=== PATIENT | male | born 1955 | race Caucasian/White ===

== ENCOUNTER 2018-11-24 10:00 | Day surgery (SDC) | payer BC, SELFPAY ==
--- NOTE | 2018-11-23 18:19 | PM.PREOP ---
Pre-operative Note Interval Note History & Physical reviewed/Exam performed by Physician: Yes Changes to H&P: No
--- NOTE | 2018-11-23 18:22 | P.OP_ITS ---
Operative Date/Time/Diagnoses Date of procedure: 11/24/18 Time of procedure: 11:45 Procedure & Clinicians Procedure: Preoperative diagnoses: 1. Left nuclear sclerotic and cortical cataract. 2. Epiretinal membrane. Postoperative diagnoses: 1. Cataract removed by phacoemulsification with placement of posterior chamber intraocular lens. Procedure: Phacoemulsification with posterior chamber intraocular lens implant Surgeon: Stacey Rendon MD Complications: None Specimen: None Implant: [id number] Blood loss: None Anesthesia: Retrobulbar with monitored standby Description of procedure: Patient presents with a complaint of decreased vision due to cataract which is affecting activities of daily living. The patient wants surgery to improve vision. he understands he has an epiretinal membrane which may affect his long-term outcome for visual quality. He understands this could require future surgery if symptoms increase. The patient was taken to the operating room and given IV sedation. A retrobulbar block consisting of 6 cc of 2% xylocaine without epinephrine mixed half and half with 0.5% Marcaine with 1 cc of hyaluronidase added is placed between the medial and lateral 1/3 of the inferior orbital rim. Lid akinesia is obtain with 1% xylocaine with epinephrine infiltrated along the lid margin. The eye is manually massaged for 30 sec, prepped using Betadine solution, and draped in the usual sterile fashion. Temporal approach was made, a 1 mm side-port incision was made 90? from the proposed clear corneal incision position. Phenylephrine 1.5% mixed with 1% xylocaine 0.2 cc was placed into the anterior chamber. Viscoat followed by Healon was then placed. A 2.6 mm clear incision with a 2.6 mm blade was placed. A 360 degree capsulorrhexis style capsulotomy was then performed with a cystitome needle on a Healon. Hydrodelineation and hydrodissection were performed. The phacoemulsification unit is introduced, and sculpting notice used to groove the central lens. It is then removed in chopping mode. Epi nucleus is removed with epinuclear mode and irrigation aspiration was used to remove the peripheral cortex. The posterior capsule is polished. The intraocular lens is selected, inspected, power confirmed, and placed in the posterior chamber. The pupil was constricted with Miostat.. The wound was stromally hydrated and tested for leaks, there was none and it was left sutureless. Vigamox 0.1 cc was placed into the anterior chamber. Kenalog 0.2 cc was placed in the superior subconjunctival space. A drop of antibiotic and was placed and the eye was patched and shielded. The patient was stable and returned to the recovery room in excellent condition. Dictated by: Stacey Rendon MD Copy to: [facility]
[2018-11-24] MEDS: PROPARACAINE 0.5% OPHTH SOL 2 DROPS EYE-OP (10:30)
[2018-11-24 10:44] VITALS: BP 124/85; PULSE 84; RESP 16; TEMP 36.4; O2SAT 100; BMI 28.1
[2018-11-24] MEDS: CATARACT EYE COMPOUND (10 DROPS/SYRINGE) 3 DROPS EYE-OP (10:50)
--- NOTE | 2018-11-24 12:59 | SUR.OPER ---
Supine on eye stretcher, head on extension cradle secured with tape. Arms tucked at sides with blanket. Pillow under knees.
[2018-11-24] MEDS: MOXIFLOXACIN OPHTH DROPS 3 ML BOTTLE 2 DROPS INJ ×2 (13:05→13:06)
[2018-11-24] MEDS: TRIAMCINOLONE 50 MG/5 ML VIAL INJ (13:06)
[2018-11-24] MEDS: HYALURONATE SODIUM 10 MG/ML SYRINGE INJ (13:07)
[2018-11-24] MEDS: CHONDROIDTIN/SOD HYALURONATE 1.05 ML SYRINGE INTRAOCULA (13:07)
[2018-11-24] MEDS: NEOMYCIN/POLY/DEX OPHTH OINT 1 APPLIC EYE-LEFT (13:08)
[2018-11-24] MEDS: CARBACHOL 1.5 ML VIAL INJ (13:08)
[2018-11-24] MEDS: BALANCED SALT IRRIG SOLN NO.2 500 ML, EPINEPHrine 1 MG IRR (13:09)
[2018-11-24] MEDS: OFLOXACIN 0.3% OPHTH 5 ML 2 DROPS EYE-LEFT (13:09)
[2018-11-24] MEDS: LIDOCAINE 1% W/EPI INJ 20 ML INJ (13:10)
[2018-11-24] MEDS: LIDOCAINE 2% 4 ML, BUPIVACAINE 0.5% (PF) 4 ML, HYALURONIDASE 150 UNIT INJ (13:11)
[2018-11-24 13:30] VITALS: BP 132/85; PULSE 90; RESP 16; TEMP 36.8; O2SAT 100
== END 2018-11-24 13:43 | disposition home or self-care (01) ==
LOC: OR 10:02
PROVIDERS: Visit Provider Ophthalmology
DX: H25.812 Combined forms of age-related cataract, left eye (principal)
CPT/HCPCS: J0171; J2704; J3301; J3470

== ENCOUNTER 2018-12-01 14:22 | Day surgery (SDC) | payer BC, SELFPAY ==
--- NOTE | 2018-11-30 13:09 | PM.PREOP ---
Pre-operative Note Interval Note History & Physical reviewed/Exam performed by Physician: Yes Changes to H&P: No
--- NOTE | 2018-11-30 13:11 | P.OP_ITS ---
Operative Date/Time/Diagnoses Date of procedure: 12/01/18 Time of procedure: 15:15 Procedure & Clinicians Procedure: Preoperative diagnoses: 1. Right advanced nuclear sclerotic and cortical cataract. 2. 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 Need for capsular dye. Postoperative diagnoses: 1. Complex cataract removed by phacoemulsification with placement of posterior chamber intraocular lens. 2. Anxiety disorder on multiple medications. Procedure: Complex Phacoemulsification with posterior chamber intraocular lens implant and use of capsular dye. Surgeon: Stacey Rendon MD Complications: None Specimen: None Implant: [id number] Blood loss: None Anesthesia: Retrobulbar with monitored standby Description of procedure: Patient presents with a complaint of decreased vision due to cataract which is affecting activities of daily living. The patient wants surgery to improve vision. He has significant corneal haze which cause difficulty with his previous surgery 1 week ago as well as with current was felt best to use capsular dye to decrease his surgical risk. This is his best seeing eye as his other eye has an epiretinal membrane. The patient was taken to the operating room and given IV sedation. A retrobulb ar block insert consisting of 6 cc of 2% xylocaine without epinephrine mixed half and half with 0.5% Marcaine with 1 cc of hyaluronidase added is placed between the medial and lateral 1/3 of the inferior orbital rim. Lid akinesia is obtain with 1% xylocaine with epinephrine infiltrated along the lid margin. The eye is manually massaged for 30 sec, prepped using Betadine solution, and draped in the usual sterile fashion. Temporal approach was made, a 1 mm side-port incision was made 90? from the proposed clear corneal incision position. Phenylephrine 1.5% mixed with 1% xylocaine 0.2 cc was placed into the anterior chamber. an air bubble was placed and Visudyne capsular dye was placed on the anterior capsule for visibility. The air bubble was then removed using BSS irrigation. Viscoat followed by Healon was then placed. A 2.6 mm clear incision with a 2.6 mm blade was placed. A 360 degree capsulorrhexis style capsulotomy was then performed with a cystitome needle on a Healon greatly aided by the anterior capsular dye. Hydrodelineation and hydrodissection were performed. The phacoemulsification unit is introduced, and sculpting notice used to groove the central lens. It is then removed in chopping mode. Epi nucleus is removed with epinuclear mode and irrigation aspiration was used to remove the peripheral cortex. The posterior capsule is polished. The intraocular lens is selected, inspected, power confirmed, and placed in the posterior chamber. The pupil was constricted with Miostat.. The wound was stromally hydrated and tested for leaks, there was none and it was left sutureless. Vigamox 0.1 cc was placed into the anterior chamber. Kenalog 0.2 cc was placed in the superior subconjunctival space. A drop of antibiotic and was placed and the eye was patched and shielded. The patient was stable and returned to the recovery room in excellent condition. Dictated by: Stacey Rendon MD Copy to: [facility]
[2018-12-01] MEDS: PROPARACAINE 0.5% OPHTH SOL 2 DROPS EYE-OP (14:45)
[2018-12-01 15:00] VITALS: BP 122/81; PULSE 89; RESP 15; TEMP 36.2; O2SAT 99; BMI 24.5
[2018-12-01] MEDS: CATARACT EYE COMPOUND (10 DROPS/SYRINGE) 3 DROPS EYE-OP (15:10)
[2018-12-01] MEDS: LIDOCAINE 1% W/EPI INJ 20 ML INJ (15:47)
[2018-12-01] MEDS: HYALURONATE SODIUM 10 MG/ML SYRINGE INJ (15:47)
[2018-12-01] MEDS: CARBACHOL 1.5 ML VIAL INJ (15:47)
[2018-12-01] MEDS: BALANCED SALT IRRIG SOLN NO.2 15 ML IRR (15:47)
[2018-12-01] MEDS: CHONDROIDTIN/SOD HYALURONATE 1.05 ML SYRINGE INTRAOCULA (15:47)
[2018-12-01] MEDS: NEOMYCIN/POLY/DEX OPHTH OINT 1 APPLIC EYE-RIGHT (15:48)
[2018-12-01] MEDS: MOXIFLOXACIN OPHTH DROPS 3 ML BOTTLE 2 DROPS INJ (15:48)
[2018-12-01] MEDS: OFLOXACIN 0.3% OPHTH 5 ML 2 DROPS EYE-RIGHT (15:48)
[2018-12-01] MEDS: TRIAMCINOLONE 50 MG/5 ML VIAL INJ (15:49)
[2018-12-01] MEDS: PHENYLEPHRINE/LIDOCAINE VIAL (OR) 0.2 ML EYE-OP (15:49)
[2018-12-01] MEDS: BALANCED SALT IRRIG SOLN NO.2 500 ML, EPINEPHrine 1 MG IRR (15:50)
[2018-12-01] MEDS: LIDOCAINE 2% 4 ML, BUPIVACAINE 0.5% (PF) 4 ML, HYALURONIDASE 150 UNIT INJ (15:50)
[2018-12-01] MEDS: TRYPAN BLUE 0.5 ML SYRINGE INJ (15:50)
[2018-12-01 16:20] VITALS: BP 120/80; PULSE 80; RESP 16; TEMP 36.6; O2SAT 99
== END 2018-12-01 16:30 ==
LOC: OR 14:25
PROVIDERS: PCP Family Medicine; Visit Provider Ophthalmology
PROC: (CPT 66982; principal; 2018-12-01 15:15)
DX: H25.811 Combined forms of age-related cataract, right eye (principal); F41.9 Anxiety disorder, unspecified; H18.50 Unspecified hereditary corneal dystrophies; E03.9 Hypothyroidism, unspecified
CPT/HCPCS: 66982; J0171; J2704; J3301; J3470